=== PATIENT | female | born 1950 | race African-American/Black ===

== ENCOUNTER 2024-01-12 09:15 | Emergency (ER) | payer OTHER ==
[~2024-01-12] VITALS: Ht 160 cm; Wt 58.0 kg
[~2024-01-12 09:15] MED LIST: ASPI-1497 PO; HYDR12.54 PO; METO25TA6 PO
[2024-01-12 09:28] VITALS: O2SAT 100
[2024-01-12] MEDS ORDERED: P20 PO (09:48)
[2024-01-12] MEDS ORDERED: CEPH500C2 MT (09:48)
[2024-01-12] MEDS ORDERED: TRIA15CR61 TP (09:48)
[2024-01-12 09:51] VITALS: BP 154/67; PULSE 88; RESP 16; TEMP 37.05852; O2SAT 100
== END 2024-01-12 10:01 | disposition home or self-care (01) ==
LOC: ER 09:29
DX: R21 Rash and other nonspecific skin eruption (principal); F12.10 Cannabis abuse, uncomplicated; I10 Essential (primary) hypertension; Z88.0 Allergy status to penicillin; Z79.899 Other long term (current) drug therapy
CPT/HCPCS: 99283

== ENCOUNTER 2024-09-12 12:02 | Emergency (ER) | payer OTHER ==
[~2024-09-12] VITALS: Ht 157.5 cm; Wt 55.0 kg
[~2024-09-12 12:02] MED LIST changes: +CEPH500C2 MT; +P20 PO; +TRIA15CR61 TP
[2024-09-12 12:20] VITALS: O2SAT 100
[2024-09-12] MEDS ORDERED: ACET-2708 MT (13:35)
[2024-09-12] MEDS ORDERED: CLIN-194 MT (13:35)
[2024-09-12 13:56] VITALS: BP 160/103; PULSE 79; RESP 18; TEMP 36.9; O2SAT 100
== END 2024-09-12 14:02 | disposition home or self-care (01) ==
LOC: ER 12:02
DX: K04.7 Periapical abscess without sinus (principal); I10 Essential (primary) hypertension; Z79.899 Other long term (current) drug therapy; Z86.73 Personal history of transient ischemic attack (TIA), and cerebral infarction without residual deficits; Z88.0 Allergy status to penicillin
CPT/HCPCS: 99283

== ENCOUNTER 2024-10-30 12:22 | Emergency (ER) | payer OTHER ==
[~2024-10-30] VITALS: Ht 162.6 cm; Wt 57.0 kg
[~2024-10-30 12:22] MED LIST changes: +ACET-2708 MT; +CLIN-194 MT
[2024-10-30 13:09] VITALS: TEMP 36.9; O2SAT 100
[2024-10-30] MEDS: PREDNISONE 20MG TABLET PO ONE (16:01)
[2024-10-30] MEDS: FAMOTIDINE 20MG TABLET PO ONE (16:01)
[2024-10-30] MEDS ORDERED: HYDR453.3 TP (17:07)
[2024-10-30] MEDS ORDERED: P20 MT (17:07)
[2024-10-30 17:31] VITALS: BP 163/98; PULSE 83; RESP 18; O2SAT 100
== END 2024-10-30 17:56 | disposition home or self-care (01) ==
LOC: ER 12:54
DX: L30.9 Dermatitis, unspecified (principal); K04.7 Periapical abscess without sinus; I10 Essential (primary) hypertension; Z86.73 Personal history of transient ischemic attack (TIA), and cerebral infarction without residual deficits; Z79.899 Other long term (current) drug therapy; Z79.52 Long term (current) use of systemic steroids; Z88.0 Allergy status to penicillin
CPT/HCPCS: 99283; J7512

== ENCOUNTER 2024-11-11 08:09 | Emergency (ER) | payer OTHER ==
[~2024-11-11] VITALS: Ht 157.5 cm; Wt 57.0 kg
[~2024-11-11 08:09] MED LIST changes: +HYDR453.3 TP; +P20 MT
[2024-11-11 08:12] VITALS: O2SAT 100
[2024-11-11 08:15] VITALS: BP 155/79; PULSE 78; RESP 18; TEMP 36.9; O2SAT 100
[2024-11-11] MEDS ORDERED: FAMOTIDINE 20MG TABLET PO STA (09:06)
[2024-11-11] MEDS ORDERED: DIPHENHYDRAMINE 50MG CAPSULE PO ONE (09:15)
[2024-11-11] MEDS ORDERED: PREDNISONE 20MG TABLET PO ONE (09:15)
[2024-11-11] MEDS ORDERED: DIPH50CA42 MT (09:18)
[2024-11-11] MEDS ORDERED: FAMO40TA70 MT (09:18)
[2024-11-11] MEDS: PREDNISONE 20MG TABLET PO NR (09:40)
[2024-11-11] MEDS: DIPHENHYDRAMINE 25MG CAPSULE PO NR (09:40)
[2024-11-11] MEDS: FAMOTIDINE 20MG TABLET PO NR (09:40)
== END 2024-11-11 09:41 | disposition home or self-care (01) ==
LOC: ER 08:09
DX: L50.9 Urticaria, unspecified (principal); I10 Essential (primary) hypertension; F12.90 Cannabis use, unspecified, uncomplicated; Z79.52 Long term (current) use of systemic steroids; Z79.899 Other long term (current) drug therapy; Z86.73 Personal history of transient ischemic attack (TIA), and cerebral infarction without residual deficits; Z88.0 Allergy status to penicillin
CPT/HCPCS: 99284; Q0163; J7512